=== PATIENT | female | born 1980 | race Caucasian/White ===

== ENCOUNTER 2016-09-04 10:53 | Emergency (ER) | payer OTHER ==
--- NOTE | ~2016-09-04 | CT4 ---
[facility] A Service of [facility] RADIOLOGY TEXT RESULTS PATIENT: THOMAS FRY LOCATION: SED : 84 UNIT #: [id number] AGE: [address]: DEVORAH LEON SEX: F ORDER DR: [id number] [place] [id number] E MR#: [id number] Acc #: [id number] NAME: THOMAS FRY : 1980 SEX: F STUDY DATE/TIME: 09/04/2016 13:26 UNIT: SED ROOM: STUDY DESCRIPTION: CT Abd and Pelv Wo Cont Ordering Physician: [facility] MEDICAL IMAGING REPORT This report is preliminary unless electronic signature is present. EXAM CT abdomen and pelvis without IV contrast COMPARISON None. INDICATIONS 36-year-old female with dysuria, nausea and pelvic pain for [address] imaging abdomen and pelvis was performed without IV contrast. Coronal and sagittal reformats were constructed. Lack of IV contrast limits evaluation of adenopathy, vasculature and viscera. This CT exam was performed with one or more of the following radiation dose reduction techniques: automatic exposure control, adjustment of mA and/or kV according to patient size, and iterative reconstruction. FINDINGS Very small fat-containing umbilical hernia. Small fat-containing right inguinal hernia. Small posterior protrusion L4-L5. No acute fractures or suspicious osseous lesions. No acute findings in the lower chest. Unenhanced liver, gallbladder, pancreas, spleen, adrenal glands and kidneys are within normal limits. No evidence of renal or ureteral calculus. There are bilateral pelvic phleboliths. CT appearance of the uterus is unremarkable on this noncontrast exam. No definite adnexal masses are seen on this exam. There is a hypoattenuating 2.8 cm lesion in the left ovary with internal [place] units of 18 suggesting a proteinaceous cyst. There is a large stool ball in the rectum measuring 6.8 cm x 5.3 cm. There is diffuse moderate colonic stool burden. No [facility] A Service of [facility] RADIOLOGY TEXT RESULTS PATIENT: THOMAS FRY LOCATION: SED : [birth year] UNIT #: [id number] AGE: [address]: DEVORAH LEON SEX: F ORDER DR: evidence of high-grade mechanical bowel obstruction. No evidence of acute appendicitis. No free fluid or pneumoperitoneum. Abdominal aorta is normal course and caliber. No evidence of adenopathy. IMPRESSION 1. No evidence of renal or ureteral calculus. No hydronephrosis. 2. Bilateral pelvic phleboliths. 3. Hypoattenuating but indeterminate density lesion in the left ovary measuring up to 2.8 cm. This most likely represents a proteinaceous or hemorrhagic ovarian cyst. Consider follow-up endovaginal pelvic ultrasound in 6 weeks to document stability or regression or to definitely document cystic nature. 4. Small fat-containing right inguinal hernia. 5. Small posterior disc protrusion at L4-L5. Small fat-containing umbilical hernia. 6. Large stool ball in the rectum measuring up to 6.9 cm x 5.3 cm. There is a large diffuse colonic stool burden. No evidence of mechanical bowel obstruction. Dictated by... Thomas Forbes M.D. THIS IS AN ELECTRONICALLY VERIFIED REPORT Thomas Forbes M.D. at 09/11/2016 12:20 PM NORBERT/radha TD: 09/04/2016 16:46 JOB #: [id number] MEDICAL IMAGING REPORT Page 1 of 1
[2016-09-04] MEDS ORDERED: SUBOXONE 12 MG1 EACH (10:59)
[2016-09-04] MEDS ORDERED: BUSPAR (10:59)
[2016-09-04] MEDS ORDERED: ZOLOFT100 MG (10:59)
[2016-09-04] MEDS ORDERED: TOPAMAX (10:59)
[2016-09-04 11:13] LABS: URINE SOURCE CLEAN CATCH
[2016-09-04 11:16] LABS: URINE APPEARANCE CLEAR; URINE BILIRUBIN NEG (NEG); URINE BLOOD NEG (NEG); URINE COLOR YELLOW; URINE GLUCOSE NEG (NORM); URINE KETONE NEG (NEG); URINE LEUKOCYTE ESTERASE NEG (NEG); URINE NITRATE NEG (NEG); URINE PH 6.5 (5-8); URINE PROTEIN NEG (NEG); URINE SPECIFIC GRAVITY 1.025 (1.003-1.035)
[2016-09-04 11:19] LABS: MICRO INDICATED? NO
[2016-09-06 15:44] LABS: CHLAMYDIA TRACH Detected (Not Detected); N GONOR Not Detected (Not Detected)
== END 2016-09-04 14:24 | disposition home or self-care (01) ==
LOC: SED 10:53
PROVIDERS: Nurse Practitioner
DX: N83.202 Unspecified ovarian cyst, left side (principal); B19.20 Unspecified viral hepatitis C without hepatic coma; F17.210 Nicotine dependence, cigarettes, uncomplicated; Z79.899 Other long term (current) drug therapy; Z98.51 Tubal ligation status
CPT/HCPCS: 74176; 81003; 84703; 87210; 87491; 87591; 87808; 87905; 96372; 99284; J1885